=== PATIENT | female | born 1985 | race Caucasian/White ===

== ENCOUNTER 2016-05-23 23:05 | Emergency (ER) | payer OTHER ==
[~2016-05-23] VITALS: Ht 162.6 cm; Wt 74.4 kg
[2016-05-23 23:05] VITALS: BP 122/70
[~2016-05-23 23:05] MED LIST: IBUP100SUS PO; MULTTAB20 PO
== END 2016-05-24 01:51 | disposition left against medical advice (07) ==
LOC: M ED 05-24 01:48
DX: H53.8 Other visual disturbances (principal); R51 Headache; Z88.0 Allergy status to penicillin; Z91.018 Allergy to other foods; R56.9 Unspecified convulsions; J45.909 Unspecified asthma, uncomplicated; Z53.29 Procedure and treatment not carried out because of patient's decision for other reasons

== ENCOUNTER 2017-01-12 19:02 | Emergency (ER) | payer SELFPAY ==
[~2017-01-12] VITALS: Ht 162.6 cm; Wt 71.8 kg
[2017-01-12] MEDS ORDERED: EXCETAB80 PO (19:24)
[2017-01-12] MEDS ORDERED: METOCLOPRAMIDE INJ 10MG/2ML VIAL (J2765) IV ONE ×2 (19:45→21:00)
[2017-01-12] MEDS ORDERED: KETOROLAC 30 MG/ML VIAL (J1885) IV ONE (19:45)
[2017-01-12] MEDS ORDERED: NS 1,000 ML IV ONE (19:45)
[2017-01-12] MEDS ORDERED: diphenhydrAMINE INJ 50MG/ML VIAL (J1200) IV ONE ×2 (19:45→21:00)
[2017-01-12 19:48] LABS: BASO % 0.1 % (0.0-1.0); EOS # 0.1 10^3/uL (0.0-0.50); EOS % 0.5 % (0.0-3.0); IMMATURE GRANULOCYTE % 0.4 % (0-0); LYMPH # 0.7 10^3/uL (1.5-4.5); LYMPH % 4.8 % (24.0-44.0); MEAN CORPUSCULAR HEMOGLOBIN 29.5 pg (27.0-33.0); MEAN CORPUSCULAR HGB CONC 33.9 g/dl (32.0-36.5); MEAN CORPUSCULAR VOLUME 87.1 fl (80.0-96.0); MONO # 0.6 10^3/uL (0.0-0.8); MONO % 4.5 % (0.0-5.0); NEUTROPHILS # 12.2 10^3/uL (1.8-7.7); NEUTROPHILS % 89.7 % (36.0-66.0); PLATELET COUNT, AUTOMATED 265 10^3/uL (150-450); RED CELL DISTRIBUTION WIDTH 12.1 % (11.5-14.5); WHITE BLOOD COUNT 13.7 10^3/uL (4.0-10.0)
[2017-01-12 19:58] LABS: CONTROL LINE HCG INT CTR LINE PRESENT
--- NOTE | 2017-01-12 20:00 | REPUSA ---
CT of the head Clinical history: Headache. Technique: Multiple axial CT images were obtained through the head without administration of contrast . Comparison: 05/28/2007. Findings: The ventricles and sulci are symmetric bilaterally. There is no evidence of acute hemorrhag e or infarct. There is no midline shift, mass effect, or extra-axial fluid collection. The osseous st ructures are unremarkable. The visualized paranasal sinuses and mastoid air cells are clear. Impression: Negative study.
[2017-01-12 20:02] LABS: ANION GAP 7 MEQ/L (8-16); BLOOD UREA NITROGEN 15 MG/DL (7-18); CALCIUM LEVEL 9.1 MG/DL (8.5-10.1); CARBON DIOXIDE LEVEL 29 MEQ/L (21-32); CHLORIDE LEVEL 102 MEQ/L (98-107); CREATININE FOR GFR 0.66 MG/DL (0.55-1.02); GLOMERULAR FILTRATION RATE > 60.0 (>60); GLUCOSE, FASTING 91 MG/DL (70-105); POTASSIUM SERUM 4.1 MEQ/L (3.5-5.1); SODIUM LEVEL 138 MEQ/L (136-145)
[2017-01-12] MEDS ORDERED: SUMAtriptan SUCCINATE 6 MG/0.5 ML VIAL SC ONE (21:00)
[2017-01-12] MEDS ORDERED: ONDANSETRON 4MG/2ML VIAL (J2405) IV ONE (23:30)
[2017-01-12 23:35] VITALS: BP 97/50
--- NOTE | 2017-01-13 05:43 | ECGEPIP ---
Stationary ECG Study [facility] - ED Test Date: 2017-01-12 Pat Name: JARED GANNON Department: Room: - Gender: F [employer]: LOVELY : 1985 Requested By: YANN Segovia Order Number: [id number] Reading MD: Alistair Longoria Measurements Intervals [place] Rate: 95 P: 59 PA: 149 QRS: 55 QRSD: 91 T: 46 QT: 321 QTc: 404 Interpretive Statements SINUS RHYTHM WITH SINUS ARRHYTHMIA BENIGN EARLY REPOLARIZATION NO PRIORS FOR COMPARISON Electronically Signed On 01-13-2017 5:43:02 EST by Alistair Longoria
== END 2017-01-12 23:54 | disposition home or self-care (01) ==
LOC: M ED 19:02
DX: G40.909 Epilepsy, unspecified, not intractable, without status epilepticus (principal); G43.909 Migraine, unspecified, not intractable, without status migrainosus
CPT/HCPCS: 70450; 80048; 84703; 85025; 93005; 96361; 96374; 96375; 96376; 99284; J1200; J1885; J2405; J2765

== ENCOUNTER 2017-04-30 16:48 | Emergency (ER) | payer MEDICAID, SELFPAY ==
[2017-04-30] MEDS: LIDOCAINE VISCOUS 2% SOLN 15ML UDC MT ×2 (17:53)
== END 2017-04-30 17:54 | disposition home or self-care (01) ==
LOC: M ED 16:48
DX: K04.7 Periapical abscess without sinus (principal); K08.89 Other specified disorders of teeth and supporting structures; J45.909 Unspecified asthma, uncomplicated; R56.9 Unspecified convulsions; Z79.899 Other long term (current) drug therapy; Z88.0 Allergy status to penicillin; Z91.018 Allergy to other foods
CPT/HCPCS: 99282

== ENCOUNTER 2017-09-17 16:56 | Emergency (ER) | payer OTHER, MEDICAID ==
[2017-09-17] MEDS: diphenhydrAMINE INJ 50MG/ML VIAL (J1200) IV (17:22)
[2017-09-17] MEDS: methylPREDNISolone INJ 125 MG/2 ML VIAL (J2930) IV (17:24)
[2017-09-17] MEDS: FAMOTIDINE IV BAG 20 MG in APPROPRIATE DILUENT 1 EA IV (17:24)
[2017-09-17] MEDS: NS 1,000 ML IV (17:36)
== END 2017-09-17 19:16 | disposition home or self-care (01) ==
LOC: M ED 16:56
DX: T78.40XA Allergy, unspecified, initial encounter (principal); Y92.9 Unspecified place or not applicable; Y93.9 Activity, unspecified; Z88.0 Allergy status to penicillin; Z91.018 Allergy to other foods
CPT/HCPCS: J1200

== ENCOUNTER 2017-11-06 11:47 | Emergency (ER) | payer OTHER ==
[2017-11-06 12:44] LABS: INFLUENZA A AMPLIFICATION NEGATIVE (NEGATIVE); INFLUENZA B AMPLIFICATION NEGATIVE (NEGATIVE)
== END 2017-11-06 12:56 | disposition home or self-care (01) ==
LOC: M ED 11:47
DX: J02.9 Acute pharyngitis, unspecified (principal); J06.9 Acute upper respiratory infection, unspecified; Z91.018 Allergy to other foods; Z88.0 Allergy status to penicillin
CPT/HCPCS: 87502

== ENCOUNTER 2018-07-07 08:29 | Emergency (ER) | payer OTHER ==
[~2018-07-07] VITALS: Ht 167.6 cm; Wt 86.5 kg
[~2018-07-07 08:29] MED LIST changes: +BENA25CA4 PO; +CLEO300C2 PO; +EXCETAB80 PO; +HYDR-3715 PO; +IBUP100S44 PO; -IBUP100SUS PO; +PEPC1TAB5 PO; +PRED20TA PO; +ST J150C2 PO
[2018-07-07 10:14] LABS: MONO SCRN NEGATIVE (NEGATIVE)
[2018-07-07] MEDS ORDERED: ZITHTAB PO (10:33)
[2018-07-07] MEDS ORDERED: MAGICMW SSP (10:34)
[2018-07-07 10:36] VITALS: BP 115/61
== END 2018-07-07 10:42 | disposition home or self-care (01) ==
LOC: M ED 08:29
DX: J02.9 Acute pharyngitis, unspecified (principal); Z88.0 Allergy status to penicillin; Z91.018 Allergy to other foods

== ENCOUNTER 2018-08-22 01:23 | Emergency (ER) | payer OTHER ==
[~2018-08-22] VITALS: Ht 167.6 cm; Wt 82.7 kg
[~2018-08-22 01:23] MED LIST changes: +MAGICMW SSP; +ZITHTAB PO
[2018-08-22] MEDS ORDERED: methylPREDNISolone INJ 125 MG/2 ML VIAL (J2930) IM ONE (02:30)
[2018-08-22 02:41] VITALS: BP 110/63
== END 2018-08-22 02:49 | disposition home or self-care (01) ==
LOC: M ED 01:23
DX: T78.40XA Allergy, unspecified, initial encounter (principal); Y92.9 Unspecified place or not applicable; Y93.9 Activity, unspecified; Z88.0 Allergy status to penicillin; Z91.018 Allergy to other foods
CPT/HCPCS: 96372; 99284; J2930

== ENCOUNTER 2018-12-18 13:22 | Emergency (ER) | payer OTHER ==
[~2018-12-18] VITALS: Ht 167.6 cm; Wt 85.1 kg
[2018-12-18 14:15] LABS: HEMATOCRIT 40.6 % (36.0-47.0); HEMOGLOBIN 13.8 g/dl (12.0-15.5); MEAN CORPUSCULAR HEMOGLOBIN 30.1 pg (27.0-33.0); MEAN CORPUSCULAR VOLUME 88.5 fl (80.0-96.0); PLATELET COUNT, AUTOMATED 263 10^3/uL (150-450); RED BLOOD COUNT 4.59 10^6/uL (4.00-5.40); WHITE BLOOD COUNT 10.1 10^3/uL (4.0-10.0)
[2018-12-18 14:36] LABS: ERYTHROCYTE SEDIMENTATION RATE 8 mm/hr (0-20)
[2018-12-18 14:42] LABS: BLOOD UREA NITROGEN 12 MG/DL (7-18); C REACTIVE PROTEIN QUANTITATIV < 0.30 MG/DL (0.00-0.30); CALCIUM LEVEL 8.9 MG/DL (8.5-10.1); CARBON DIOXIDE LEVEL 25 MEQ/L (21-32); CHLORIDE LEVEL 106 MEQ/L (98-107); CREATININE FOR GFR 0.66 MG/DL (0.55-1.30); GLOMERULAR FILTRATION RATE > 60.0 (>60); GLUCOSE, FASTING 86 MG/DL (70-100); POTASSIUM SERUM 4.8 MEQ/L (3.5-5.1); SODIUM LEVEL 139 MEQ/L (136-145)
[2018-12-18] MEDS ORDERED: KETOROLAC 30 MG/ML VIAL (J1885) IV ONE (15:30)
[2018-12-18] MEDS ORDERED: METOCLOPRAMIDE INJ 10MG/2ML VIAL (J2765) IV ONE (15:30)
[2018-12-18] MEDS ORDERED: NS 1,000 ML IV ONE (15:30)
[2018-12-18] MEDS ORDERED: diphenhydrAMINE INJ 50MG/ML VIAL (J1200) IV ONE (15:30)
[2018-12-18 18:34] VITALS: BP 105/56
== END 2018-12-18 19:06 | disposition home or self-care (01) ==
LOC: M ED 13:22
DX: G43.909 Migraine, unspecified, not intractable, without status migrainosus (principal); J45.909 Unspecified asthma, uncomplicated; Z88.0 Allergy status to penicillin; Z91.018 Allergy to other foods
CPT/HCPCS: 80048; 85027; 85652; 86140; 96361; 96374; 96375; 99284; J1200; J1885; J2765

== ENCOUNTER 2019-01-14 05:25 | Emergency (ER) | payer OTHER ==
[~2019-01-14] VITALS: Ht 167.6 cm; Wt 81.8 kg
[2019-01-14 05:25] VITALS: BP 113/58
[2019-01-14] MEDS ORDERED: ZITHTAB PO (05:49)
[2019-01-14] MEDS ORDERED: AZITHROMYCIN 250 MG TAB PO ONE (06:00)
[2019-01-14] MEDS ORDERED: KETOROLAC 60 MG/2 ML VIAL (J1885) IM ONE (06:00)
== END 2019-01-14 06:12 | disposition home or self-care (01) ==
LOC: M ED 05:25
DX: J02.9 Acute pharyngitis, unspecified (principal); R59.9 Enlarged lymph nodes, unspecified; R05 Cough; Z88.0 Allergy status to penicillin; Z91.018 Allergy to other foods
CPT/HCPCS: 96372; 99282; J1885

== ENCOUNTER 2019-02-14 10:38 | Emergency (ER) | payer OTHER ==
[~2019-02-14] VITALS: Ht 167.6 cm; Wt 81.8 kg
[2019-02-14 10:38] VITALS: BP 111/74
[2019-02-14] MEDS ORDERED: IBUP200C25 PO (10:43)
[2019-02-14] MEDS ORDERED: NON-325T5 PO (10:43)
[2019-02-14] MEDS ORDERED: CLEO300C2 PO (11:55)
[2019-02-14] MEDS ORDERED: LIDO1SOL8 PO (11:55)
== END 2019-02-14 12:01 | disposition home or self-care (01) ==
LOC: M ED 10:38
DX: K12.2 Cellulitis and abscess of mouth (principal); Z88.0 Allergy status to penicillin; Z91.018 Allergy to other foods

== ENCOUNTER → 2019-05-07 | Outpatient (CLI) | payer OTHER ==
[~2019-05-07] MED LIST changes: +IBUP200C25 PO; +LIDO2SOL17 PO; +NON-325T5 PO
== END ==
LOC: M LABSMTC 10:59
PROVIDERS: ATTEND Family Medicine
DX: Z11.59 Encounter for screening for other viral diseases (principal); Z20.828 Contact with and (suspected) exposure to other viral communicable diseases
CPT/HCPCS: 87486; 87581; 87633; 87798; U0002

== ENCOUNTER 2019-06-11 13:20 | Emergency (ER) | payer OTHER ==
[~2019-06-11] VITALS: Ht 172.7 cm; Wt 81.8 kg
[2019-06-11 13:20] VITALS: BP 118/69
--- NOTE | 2019-06-11 15:16 | REP ---
LEFT ELBOW, FIVE VIEWS: Five views of the left elbow performed. There is a slightly displaced fracture of the head of the radius. There is associated joint effusion. No other acute fracture or dislocation is seen. Electronically Signed by Bladimir Hauser MD 06/11/2019 04:24 P
== END 2019-06-11 14:35 | disposition home or self-care (01) ==
LOC: M ED 13:20
DX: S52.122A Displaced fracture of head of left radius, initial encounter for closed fracture (principal); W01.0XXA Fall on same level from slipping, tripping and stumbling without subsequent striking against object, initial encounter; Z88.0 Allergy status to penicillin; Y92.019 Unspecified place in single-family (private) house as the place of occurrence of the external cause; Z91.018 Allergy to other foods

== ENCOUNTER 2019-08-16 12:03 | Emergency (ER) | payer OTHER ==
[~2019-08-16] VITALS: Ht 170.2 cm; Wt 90.5 kg
[2019-08-16 12:06] VITALS: BP 119/72
[2019-08-16] MEDS ORDERED: MAPA500C PO (12:14)
[2019-08-16] MEDS ORDERED: IBUPROFEN 600MG TAB PO ONE (12:30)
[2019-08-16] MEDS ORDERED: methocarbamoL 750 MG TAB PO ONE (12:30)
[2019-08-16] MEDS ORDERED: ROBA750T4 PO (12:58)
[2019-08-16] MEDS ORDERED: IBUP80TA PO (12:58)
== END 2019-08-16 13:03 | disposition home or self-care (01) ==
LOC: M ED 12:03
DX: S39.012A Strain of muscle, fascia and tendon of lower back, initial encounter (principal); Z88.0 Allergy status to penicillin; Z91.018 Allergy to other foods; X50.1XXA Overexertion from prolonged static or awkward postures, initial encounter; Y92.9 Unspecified place or not applicable; Y99.8 Other external cause status; G43.909 Migraine, unspecified, not intractable, without status migrainosus; Y93.F2 Activity, caregiving, lifting

== ENCOUNTER → 2020-02-02 | Outpatient (CLI) | payer SELFPAY ==
[~2020-02-02] MED LIST changes: +ACET-838 PO; +IBUP80TA PO; +MAPA500C PO; -NON-325T5 PO; +ROBA750T4 PO
== END ==
LOC: M LABSMTC 13:20
PROVIDERS: ATTEND Pediatrics
DX: Z20.828 Contact with and (suspected) exposure to other viral communicable diseases (principal)

== ENCOUNTER 2020-09-20 17:16 | Emergency (ER) | payer OTHER, SELFPAY ==
[~2020-09-20] VITALS: Ht 162.6 cm; Wt 81.8 kg
[~2020-09-20 17:16] MED LIST changes: -ACET-838 PO; +ACET32TAB PO
[2020-09-20] MEDS ORDERED: METOCLOPRAMIDE INJ 10MG/2ML VIAL (J2765 PER 1) IV ONE (18:05)
[2020-09-20] MEDS ORDERED: KETOROLAC 30 MG/ML 1ML VIAL IV ONE (18:05)
[2020-09-20] MEDS ORDERED: NS 1,000 ML IV ONE (18:05)
[2020-09-20 18:28] LABS: BASO % 0.4 % (0.0-1.0); EOS # 0.1 10^3/uL (0.0-0.5); EOS % 0.9 % (0.0-3.0); HEMATOCRIT 41.2 % (36.0-47.0); HEMOGLOBIN 13.6 g/dl (12.0-15.5); LYMPH # 1.8 10^3/uL (1.5-5.0); LYMPH % 16.8 % (24.0-44.0); MEAN CORPUSCULAR HEMOGLOBIN 29.2 pg (27.0-33.0); MEAN CORPUSCULAR VOLUME 88.4 fl (80.0-96.0); MONO # 0.6 10^3/uL (0.0-0.8); MONO % 5.9 % (2.0-8.0); NEUTROPHILS # 7.9 10^3/uL (1.5-8.5); NEUTROPHILS % 75.6 % (36.0-66.0); PLATELET COUNT, AUTOMATED 300 10^3/uL (150-450); RED BLOOD COUNT 4.66 10^6/uL (4.00-5.40); WHITE BLOOD COUNT 10.5 10^3/uL (4.0-10.0)
[2020-09-20] MEDS ORDERED: ISOVUE-370 76% 100ML VIAL As Ordered ONE (18:29)
[2020-09-20 19:00] LABS: ALBUMIN 4.1 GM/DL (3.2-5.2); ALT/SGPT 18 U/L (12-78); BILIRUBIN,DIRECT < 0.1 MG/DL (0.0-0.2); BILIRUBIN,TOTAL 0.3 MG/DL (0.2-1.0); CK-MB VALUE MASS < 1.0 NG/ML (<3.6); CPK CREATINE PHOSPHOKINASE 79 U/L (26-192); MB/CK RELATIVE INDEX 1.27 (< OR =4); TOTAL PROTEIN 7.4 GM/DL (6.4-8.2); TROPONIN I < 0.02 NG/ML (< 0.10)
[2020-09-20 21:45] VITALS: BP 116/59
== END 2020-09-20 22:13 | disposition home or self-care (01) ==
LOC: M ED 17:16
DX: G43.809 Other migraine, not intractable, without status migrainosus (principal); J45.909 Unspecified asthma, uncomplicated; Z88.0 Allergy status to penicillin
CPT/HCPCS: 70450; 70496; 70498; 80047; 80076; 82550; 82553; 84443; 85025; 93005; 93041; 94760; 96361; 96374; 96375; 99285; J1885; J2765; Q9967

== ENCOUNTER → 2021-01-21 | Outpatient (REF) | LOC: M EMP 12:51 | PROVIDERS: ATTEND Family Medicine | DX: Z11.52 Encounter for screening for COVID-19 (principal) ==

== ENCOUNTER → 2021-01-25 | Outpatient (REF) ==
[2021-01-25 13:51] LABS: RSV AMPLIFICATION NEGATIVE (NEGATIVE)
== END ==
LOC: M LABSMTC 11:01
PROVIDERS: ATTEND Family Medicine
DX: Z11.52 Encounter for screening for COVID-19 (principal); Z20.822 Contact with and (suspected) exposure to COVID-19

== ENCOUNTER 2021-05-11 06:01 | Emergency (ER) | payer OTHER ==
[~2021-05-11] VITALS: Ht 162.6 cm; Wt 81.8 kg
[2021-05-11] MEDS ORDERED: CLEO300C2 PO (07:19)
[2021-05-11] MEDS ORDERED: LIDOCAINE 2% W/ EPINEPHRINE 1.7 ML DENTAL INJ SM ONE (07:20)
[2021-05-11 08:31] VITALS: BP 121/70
== END 2021-05-11 08:37 | disposition home or self-care (01) ==
LOC: M ED 06:01
DX: K08.9 Disorder of teeth and supporting structures, unspecified (principal); J45.909 Unspecified asthma, uncomplicated; G40.909 Epilepsy, unspecified, not intractable, without status epilepticus; G43.909 Migraine, unspecified, not intractable, without status migrainosus; Z88.0 Allergy status to penicillin; Z91.018 Allergy to other foods

== ENCOUNTER → 2021-05-29 | Outpatient (REF) | LOC: M EMP 12:22 | PROVIDERS: ATTEND Family Medicine | DX: Z11.52 Encounter for screening for COVID-19 (principal) ==

== ENCOUNTER → 2022-02-11 | Outpatient (REF) ==
[2022-02-11 13:22] LABS: RSV AMPLIFICATION NEGATIVE (NEGATIVE)
== END ==
LOC: M LABSMTC 11:35
PROVIDERS: ATTEND Family Medicine
DX: Z20.818 Contact with and (suspected) exposure to other bacterial communicable diseases (principal)

== ENCOUNTER → 2022-06-19 | Outpatient (REF) ==
[~2022-06-19] MED LIST changes: +LIDO15SO PO; -LIDO2SOL17 PO
[2022-06-19 14:55] LABS: RSV AMPLIFICATION NEGATIVE (NEGATIVE)
== END ==
LOC: M EMP 10:42
PROVIDERS: ATTEND Family Medicine
DX: Z20.828 Contact with and (suspected) exposure to other viral communicable diseases (principal)

== ENCOUNTER → 2022-09-30 | Outpatient (REF) | LOC: M EMP 08:13 | PROVIDERS: ATTEND Family Medicine | DX: Z11.52 Encounter for screening for COVID-19 (principal) ==

== ENCOUNTER → 2024-01-22 | Outpatient (REF) ==
[~2024-01-22] MED LIST changes: -LIDO15SO PO; +LIDO15SO8 PO
== END ==
LOC: M EMP 11:38
PROVIDERS: ATTEND Family Medicine
DX: Z11.52 Encounter for screening for COVID-19 (principal)

== ENCOUNTER → 2024-02-08 | Outpatient (REF) | LOC: M EMP 09:07 | PROVIDERS: ATTEND Family Medicine | DX: Z01.89 Encounter for other specified special examinations (principal) ==

== ENCOUNTER → 2024-10-25 | Outpatient (REF) ==
[2024-10-25 14:09] LABS: SOFIA COVID ANTIGEN POSITIVE (NEGATIVE)
== END ==
LOC: M EMP 13:44
PROVIDERS: ATTEND Family Medicine
DX: Z20.822 Contact with and (suspected) exposure to COVID-19 (principal); Z11.52 Encounter for screening for COVID-19